=== PATIENT | male | born 1975 | race African-American/Black ===

== ENCOUNTER → 2021-12-06 | Outpatient (CLI) | payer OTHER ==
[2021-12-06 10:39] LABS: BILIRUBIN,URINE NEGATIVE (NEGATIVE); UROBILINOGEN,URINE 0.2 E.U./dL (0.2)
== END | disposition home or self-care (01) ==
LOC: LAB 09:30
PROVIDERS: ATTEND Internal Medicine
DX: N18.31 Chronic kidney disease, stage 3a (principal)
CPT/HCPCS: 36415; 80069; 81001; 82043; 82570; 87086

== ENCOUNTER → 2022-05-13 | Outpatient (CLI) | payer OTHER ==
--- NOTE | 2022-05-13 08:45 | DIREP ---
PROCEDURE:CT ABDOMEN/PELVIS W/O CONTRAST COMPARISON:None. INDICATIONS:R11.14 VOMITING BILE TECHNIQUE:Axial images were created through the abdomen and pelvis without intravenous contrast material. Oral contrast was administered. Sagittal and coronal reconstructions were performed from source images. FINDINGS: LUNG BASES:Patchy ground-glass opacities and linear subsegmental atelectasis are seen in the left base. LIVER:Normal. No significant liver lesions are identified. BILIARY:Normal. No visible dilatation or calcification. PANCREAS:Normal. No lesion, fluid collection, ductal dilatation, or atrophy. SPLEEN:Normal. No enlargement or focal lesion. ADRENALS:Normal. No mass or enlargement. URINARY TRACT:1.7 cm cyst is seen in the superior pole of the left kidney. Both kidneys are otherwise normal. No renal or ureteral calculi are seen. AORTA/VASCULAR:Normal. No aneurysm. RETROPERITONEUM:There are enlarged bilateral external iliac and pelvic nodes with a referenced left node measuring 2.8 cm x 1.8 cm and referenced right node measuring 2 cm x 1.5 cm. BOWEL/MESENTERY:Normal. There is no intestinal obstruction, free fluid, free air or mesenteric inflammatory changes. Normal appendix. ABDOMINAL WALL:Edematous changes are seen of the abdominal wall. Small fat containing bilateral inguinal hernias are seen. PELVIC ORGANS:Diffuse wall thickening is seen of the urinary bladder. The prostate is normal in size. BONES:Degenerative changes are seen lumbar spine more severe at L4-5 with vacuum disc at L1-2, L3-4 and L4-5. OTHER:Negative. CONCLUSION: 1. Non specific findings of diffuse wall thickening of the urinary bladder which can be correlated clinically for cystitis. 2. Nonspecific enlarged bilateral external iliac and pelvic nodes. 3. Nonspecific edematous changes are seen in the abdominal wall. Dictated by: Evan Black M.D. On 05/13/2022 at 08:35 AM
== END | disposition home or self-care (01) ==
LOC: RAD 08:17
PROVIDERS: ATTEND Internal Medicine
DX: K40.20 Bilateral inguinal hernia, without obstruction or gangrene, not specified as recurrent (principal); N28.1 Cyst of kidney, acquired; M47.816 Spondylosis without myelopathy or radiculopathy, lumbar region
CPT/HCPCS: 74176

== ENCOUNTER → 2022-07-28 | Outpatient (CLI) | payer OTHER ==
[2022-07-28 15:14] LABS: MEAN CORP HGB 28.7 pg (26-34); RED CELL DISTRIBUTION WIDTH 13.4 % (11.5-14.5)
[2022-07-28 15:30] LABS: CARBON DIOXIDE 18.1 mmol/L (20.0-32)
[2022-07-28 15:36] LABS: BILIRUBIN,URINE NEGATIVE (NEGATIVE); UROBILINOGEN,URINE 0.2 E.U./dL (0.2)
[2022-07-30 08:28] LABS: IMMUNOGLOBULIN G, QN, SERUM 1033 mg/dL (603-1613); IMMUNOGLOBULIN M, QN, SERUM 72 mg/dL (20-172)
== END | disposition home or self-care (01) ==
LOC: LAB 14:19
PROVIDERS: ATTEND Internal Medicine
DX: E11.21 Type 2 diabetes mellitus with diabetic nephropathy (principal); N18.4 Chronic kidney disease, stage 4 (severe)
CPT/HCPCS: 36415; 80069; 81001; 82043; 82570; 82784; 83883; 85027; 86803; 87086

== ENCOUNTER → 2022-10-24 | Outpatient (CLI) | payer OTHER ==
[2022-10-24 10:06] LABS: MEAN CORP HGB 28.6 pg (26-34); RED CELL DISTRIBUTION WIDTH 12.2 % (11.5-14.5)
[2022-10-24 10:08] LABS: BILIRUBIN,URINE NEGATIVE (NEGATIVE); UROBILINOGEN,URINE 0.2 E.U./dL (0.2)
[2022-10-24 10:23] LABS: CARBON DIOXIDE 26.2 mmol/L (20.0-32)
== END | disposition home or self-care (01) ==
LOC: LAB 09:38
PROVIDERS: ATTEND Internal Medicine
DX: N18.4 Chronic kidney disease, stage 4 (severe) (principal)
CPT/HCPCS: 36415; 80069; 81001; 82043; 82570; 85027; 87086

== ENCOUNTER → 2022-11-11 | Outpatient (CLI) | payer OTHER ==
[2022-11-11 13:55] LABS: EST GFR, NON-AA 10.2 (>/=60)
[2022-11-11 14:20] LABS: POTASSIUM 3.5 mmol/L (3.6-5.2)
[2022-11-11 14:40] LABS: ANION GAP 12.5; CALCIUM 7.5 mg/dL (8.4-10.5)
[2022-11-11 14:47] LABS: CREATININE SERUM 5.96 mg/dL (0.59-1.40)
== END | disposition home or self-care (01) ==
LOC: LAB 12:57
PROVIDERS: ATTEND Internal Medicine
DX: N18.5 Chronic kidney disease, stage 5 (principal)
CPT/HCPCS: 36415; 80048

== ENCOUNTER → 2023-01-05 | Outpatient (CLI) | payer OTHER ==
[2023-01-05 12:03] LABS: ALBUMIN(ML) 1.6 g/dL (3.4-5.0); ANION GAP 16.7; BUN/CREATININE RATIO 9.72 (10.0-20.0); CALCIUM 7.3 mg/dL (8.4-10.5); CARBON DIOXIDE 19.7 mmol/L (20.0-32); EST GFR, NON-AA 8.2 (>/=60); POTASSIUM 3.4 mmol/L (3.6-5.2)
[2023-01-05 12:51] LABS: CREATININE SERUM 7.2 mg/dL (0.59-1.40)
== END | disposition home or self-care (01) ==
LOC: RAD 11:18
PROVIDERS: ATTEND Internal Medicine
DX: N18.5 Chronic kidney disease, stage 5 (principal)
CPT/HCPCS: 36415; 80069

== ENCOUNTER → 2023-12-02 | Outpatient (CLI) | payer BC | END | disposition home or self-care (01) | LOC: RAD 14:42 | PROVIDERS: ATTEND Internal Medicine | DX: M25.561 Pain in right knee (principal); M25.462 Effusion, left knee; M25.461 Effusion, right knee; M25.562 Pain in left knee | CPT/HCPCS: 73560 ==